=== PATIENT | male | born 1995 | race Caucasian/White ===

== ENCOUNTER 2020-12-05 22:38 | Emergency (ER) | payer SELFPAY ==
[2020-12-05] MEDS ORDERED: LORazepam 1 MG Tab PO ONE (23:39)
--- NOTE | 2020-12-05 23:47 | EDM.PDOCBH ---
<Wayne Gibson - Last Filed: 12/05/20 23:57> ED HPI GENERAL MEDICAL PROBLEM - General Chief Complaint: Behavioral/Psych Stated Complaint: MENTAL HEALTH CHECK Time Seen by Provider: 12/05/20 23:10 Source of Information: Reports: Patient History Limitations: Reports: No Limitations - History of Present Illness INITIAL COMMENTS - FREE TEXT/NARRATIVE: 25-year-old male presents to the ED after being dropped off by a local police officers. Patient is up in [place] and has been here for the last month for the delivery of his child. He is from [place], [place]. He is unfamiliar with [place] and has no family here. He is living in a multi person dwelling with roommate his child's girlfriend and a baby that is 10 days old and a [id number] that is very manipulating and controlling. Tonight he was advised that he had to leave the residence that he had been living in with at with his girlfriend for the last month. Therefore it appears the relation between him and his girlfriend has been severed. He has no place to go and came to the ED after expressing some suicidal ideation to forest officer. He states after he was kicked out of the residence with his belongings he did think transiently about just walking [place] [address] [place] but states he could not do it. His sister committed suicide 5 years ago and he states he just could not do that to his mother. Patient does not smoke. Denies alcohol use. He does not drink coffee. Does not use any recreational drugs. He has not had much to eat or drink today. He is essentially unsure how he is going to get back to [place]. These problems cannot be solved in the emergency room overnight. He will be offered food and drink a nd a bed to sleep and overnight. I will have social science instructor see him in the morning with a view to trying arrange some funding for him to get back to [facility] where he has friends and I believe some family. He is facing a mcc term in [place] for approximately 2-1/2 months coming up in the next 3 weeks. He reports he is out on bail at this time so that he could be here for the delivery of his child. He has no past history of major depressive illness. Denies suicidal ideation at this time. Onset: Today, Sudden Onset Date: 12/06/20 Onset Time: 18:00 Duration: Hour(s): Quality: Reports: Other (No place to live or reside at this point time.) Severity: Severe Improves with: Reports: None Worsens with: Reports: None Context: Reports: Other (Currently here in [place] with no job or ability to support himself or his young girlfriend and baby.). Denies: Activity, Exercise, Lifting, Sick Contact, Trauma Associated Symptoms: Reports: Confusion, Loss of Appetite, Malaise. Denies: Chest Pain, Cough, cough w sputum, Diaphoresis, Fever/Chills, Headaches, Nausea/Vomiting, Rash, Seizure, Shortness of Breath, Syncope, Weakness Treatments INFANT TODDLER LEAD TEACHER: Reports: Other (see below) (None.) - Related Data Allergies Allergy/AdvReac Type Severity Reaction Status Date / Time No Known Allergies Allergy Verified 12/05/20 22:58 Past Medical History - Past Health History Medical/Surgical History: Denies Medical/Surgical History - Infectious Disease History Infectious Disease History: Reports: None Social & Family History - Tobacco Use Tobacco Use Status *Q: Never Tobacco User Second Hand Smoke Exposure: No - Caffeine Use Caffeine Use: Reports: None - Recreational Drug Use Recreational Drug Use: No - Living Situation & Occupation Living situation: Reports: Single Occupation: Unemployed ED ROS GENERAL - Review of Systems Review Of Systems: See Below Constitutional: Reports: Malaise, Weakness, Fatigue, Decreased Appetite. Denies: Fever, Chills, Weight Loss HEENT: Reports: Glasses Respiratory: Reports: No Symptoms Cardiovascular: Reports: No Symptoms Endocrine: Reports: No Symptoms GI/Abdominal: Reports: No Symptoms : Reports: No Symptoms Musculoskeletal: Reports: No Symptoms Skin: Reports: No Symptoms Neurological: Reports: No Symptoms Psychiatric: Reports: No Symptoms Hematologic/Lymphatic: Reports: No Symptoms Immunologic: Reports: No Symptoms ED EXAM, BEHAVIORAL HEALTH - Physical Exam Exam Limited By: No Limitations General Appearance: Alert, WD/WN, Anxious, Moderate Distress, Other (Anxious somewhat tearful. Temperature is 37.0 degrees heart rate is 92 in sinus respiratory is 20 with O2 sats of 97%. BP 123/81) Eye Exam: Bilateral Eye: Normal Inspection, PERRL Throat/Mouth: Normal Inspection, Normal Lips, Normal Teeth Head: Atraumatic, Normocephalic Neck: Normal Inspection, Supple, Non-Tender, Full Range of Motion. No: Lymphadenopathy (L), Lymphadenopathy (R) Respiratory/Chest: No Respiratory Distress, Lungs Clear, Normal Breath Sounds, No Accessory Muscle Use Cardiovascular: Normal Peripheral Pulses, Regular Rate, Rhythm, No Edema, No Gallop, No Murmur, No Rub GI/Abdominal: Normal Bowel Sounds, Soft, Non-Tender, No Organomegaly, No Mass, Pelvis Stable, Other (Scaphoid abdomen without any scars.) Back Exam: Normal Inspection, Full Range of Motion. No: CVA Tenderness (L), CVA Tenderness (R) Extremities: Normal Inspection, Normal Range of Motion, Non-Tender, No Pedal Edema Neurological: Alert, Normal Mood/Affect, CN II-XII Intact, Normal Cognition, No Motor/Sensory Deficits, Oriented x 3 Psychiatric: Alert, Normal Cognition, Oriented, Depressed Mood, Tearful. No: Normal Affect Skin Exam: Warm, Dry, Intact, Normal color, No rash COURSE, BEHAVIORAL HEALTH COMP - Course Re-Assessment/Re-Exam: 25-year-old male presents to the ED by District Fire Management Officer's department. They found him walking on the side of the highway [place]. The history suggest that he moved up here to be present for the of his child whom is about 10 days old. He is with a young female that he met down in [place]. She came home where her mother is here in [place] for the of the child so that they would have a place to live and a roof over their head. He has not been looking for work. patient services specialist has been involved and apparently the baby was taken away from the mother and him by an aunt. He reports his current [id number] is extremely controlling and manipulative. He was told by his girlfriend glory that he had to leave the home and essentially therefore has no place to go. He has no money and is not sure how he is going to get back to [facility] where he used to reside. He has an impending mcc sentence in [place] coming up in the next 3 weeks where he will be incarcerated for a period of 3 months or so. He knew he was going to have to travel back to [place] in the near future at any rate. Appears to be rather immature and not able to make important life situation decisions. He did express some suicidal ideation to police captain who found him walking along the [place] [address] [place] from [place]. He was therefore dropped off at the hospital. However here he expresses that he certainly distraught and confused and not sure how he is going to get back to [facility]. He denies any suicidal ideation at this time. He takes no medications. His health is otherwise good. He denies using alcohol or street drugs. I see no need for investigations. The plan will be to get him something to eat and drink. 2 mg of Ativan orally to relieve a lot of his psychological distress and ensure a good night sleep so that he can make appropriate decisions in the morning. We will have social services analyst become involved with him later tomorrow morning and see if we can help get him back to [place]. Departure - Departure Disposition: Home, Self-Care 01 Clinical Impression: Encounter for medical screening examination - Discharge Information Referrals: PCP,None [Primary Care Provider] - Forms: ED Department Discharge Additional Instructions: 1. Follow up with your regular doctor as soon as possible 2. Return to the ED as needed for any new concerning symptoms Sepsis Event Note (ED) - Evaluation Sepsis Screening Result: No Definite Risk <Jeffy Ca - Last Filed: 12/06/20 16:38> ED EXAM, BEHAVIORAL HEALTH - Physical Exam Exam: See Below COURSE, BEHAVIORAL HEALTH COMP - Course Vital Signs: Last Vital Signs Temp 37.0 C 12/05/20 22:56 Pulse 92 12/05/20 22:56 Resp 20 12/05/20 22:56 BP 123/81 12/05/20 22:56 Pulse Ox 97 12/05/20 22:56 Orders, Labs, Meds: Medications Discontinued Medications Generic Name Dose Route Start Last Admin Trade Name Armando PRN Reason Stop Dose Admin Lorazepam 2 mg 12/05/20 23:39 12/05/20 23:43 Lorazepam 1 Mg Tab PO 12/05/20 23:40 2 mg ONETIME ONE Administration Departure - Departure Time of Disposition: 13:52
== END 2020-12-06 14:01 | disposition home or self-care (01) ==
LOC: JD.ED 22:38
DX: Z02.89 Encounter for other administrative examinations (principal)
CPT/HCPCS: 99283; A9270; 99284